=== PATIENT | male | born 1975 | race Caucasian/White ===

== ENCOUNTER 2021-07-10 21:58 | Emergency (ER) | payer OTHER ==
[2021-07-11 00:03] LABS: Absolute Lymphocytes (CBC) 1.8 K/uL (0.7-4.9); Basophils % 0.4 % (0-1.3); Hematocrit 52.4 % (39.6-49.0); Lymphocytes % 22.4 % (15.3-44.8); MPV 9.2 fL (7.6-11.3)
[2021-07-11 00:05] LABS: ALT/SGPT 33 U/L (12-78); AST/SGOT 23 U/L (15-37); Albumin 4.2 g/dL (3.4-5.0); Alkaline Phosphatase 68 U/L (45-117); BUN Blood Urea Nitrogen 17 mg/dL (7-18); Bicarbonate 31 mmol/L (21-32); Bilirubin Direct 0.1 mg/dL (0-0.2); Bilirubin Total 0.6 mg/dL (0.2-1.0); Glucose Level 100 mg/dL (74-106); Sodium Level 140 mmol/L (136-145)
[2021-07-11 00:06] LABS: Magnesium 2.2 mg/dL (1.8-2.4); NT PRO-BNP 50 pg/mL (<125); Troponin (Emerg Dept Use Only) < 0.02 ng/mL (0.0-0.045)
[2021-07-11 00:18] LABS: Protime INR 0.95
[2021-07-11 01:50] LABS: Barbiturates NEGATIVE (NEGATIVE); Benzodiazepines NEGATIVE (NEGATIVE); Cocaine NEGATIVE (NEGATIVE); METHAMPHETAM NEGATIVE (NEGATIVE); Methadone NEGATIVE (NEGATIVE); Opiates NEGATIVE (NEGATIVE); Phencyclidine NEGATIVE (NEGATIVE); THC Cannibis NEGATIVE (NEGATIVE)
--- NOTE | 2021-07-11 02:27 | EDPHYS ---
Physician Documentation [facility] Name: Case Jones Age: 45 yrs Sex: Male : 1975 Arrival Date: 07/10/2021 Time: 22:11 Bed 2 Private MD: ED Physician Migue Foster HPI: 07/11 01:24 This 45 yrs old Male presents to ER via Ambulatory with complaints of High pkl Blood Pressure. 01:24 Onset: The symptoms/episode began/occurred just prior to arrival. Associated signs and pkl symptoms: Pertinent positives: dizziness. Historical: - Allergies: 07/10 23:28 No Known Allergies; kg - Home Meds: 23:28 Adipex-P 37.5 mg oral tab 1 tab once daily [Active]; Flomax 0.4 mg Oral cap 1 cap once kg daily [Active]; Ambien 5 mg Oral tab 1 tab once daily [Active]; - PMHx: 23:28 BPH; kg - PSHx: 23:28 Intestinal SX when 6 months old; kg - Immunization history:: Adult Immunizations up to date, Client reports having NOT received the Covid vaccine. - Social history:: Smoking status: Patient denies any tobacco usage or history of. Patient uses alcohol, occasionally. ROS: 07/11 01:24 Eyes: Negative for injury, pain, redness, and discharge, ENT: Negative for injury, pkl pain, and discharge, Neck: Negative for injury, pain, and swelling, Cardiovascular: Negative for chest pain, palpitations, and edema. Respiratory: Positive for shortness of breath. Abdomen/GI: Negative for abdominal pain, nausea, vomiting, and diarrhea. Back: Negative for acute changes. : Negative for urinary symptoms. MS/extremity: Negative for acute changes. Skin: Negative for diaphoresis, rash. Neuro: Negative for altered mental status, loss of consciousness. Exam: 01:24 Head/Face: Normocephalic, atraumatic. Eyes: Pupils equal round and reactive to light, pkl extra-ocular motions intact. Lids and lashes normal. Conjunctiva and sclera are non-icteric and not injected. Cornea within normal limits. Periorbital areas with no swelling, redness, or edema. ENT: Nares patent. No nasal discharge, no septal abnormalities noted. Tympanic membranes are normal and external auditory canals are clear. Oropharynx with no redness, swelling, or masses, exudates, or evidence of obstruction, uvula midline. Mucous membranes moist. Neck: Trachea midline, no thyromegaly or masses palpated, and no cervical lymphadenopathy. Supple, full range of motion without nuchal rigidity, or vertebral point tenderness. No Meningismus. Chest/axilla: Normal chest wall appearance and motion. Nontender with no deformity. No lesions are appreciated. Cardiovascular: Regular rate and rhythm with a normal S1 and S2. No gallops, murmurs, or rubs. Normal PMI, no JVD. No pulse deficits. Respiratory: Lungs have equal breath sounds bilaterally, clear to auscultation and percussion. No rales, rhonchi or wheezes noted. No increased work of breathing, no retractions or nasal flaring. Abdomen/GI: Soft, non-tender, with normal bowel sounds. No distension or tympany. No guarding or rebound. No evidence of tenderness throughout. Back: No spinal tenderness. No costovertebral tenderness. Full range of motion. Skin: Warm, dry with normal turgor. Normal color with no rashes, no lesions, and no evidence of cellulitis. MS/ Extremity: Pulses equal, no cyanosis. Neurovascular intact. Full, normal range of motion. Neuro: Awake and alert, GCS 15, oriented to person, place, time, and situation. Cranial nerves II-XII grossly intact. Motor strength 5/5 in all extremities. Sensory grossly intact. Cerebellar exam normal. Normal gait. Vital Signs: 07/10 23:22 BP 182 / 121; Pulse 87; Resp 20; Temp 98.4; Pulse Ox 100% on R/A; Weight 113.4 kg (R); kg Height 6 ft. 2 in. (187.96 cm) (R); Pain 0/10; 07/11 01:52 BP 158 / 113; Pulse 78; Resp 20; Temp 98.1; Pulse Ox 98% ; Pain 0/10; ms4 07/10 23:22 Body Mass Index 32.10 (113.40 kg, 187.96 cm) kg MDM: 01:07 Patient medically screened. pkl 02:21 Data reviewed: vital signs, nurses notes, lab test result(s), EKG, radiologic studies, pkl CT scan, plain films. ED course: Patient feeling better. Discussed lab, EKG and imaging studies with patient. Advised to follow up with his PCP next week. Patient understood instruction. 07/10 23:38 Order name: Basic Metabolic Panel kg 07/10 23:38 Order name: CBC with Diff kg 07/10 23:38 Order name: LFT's; Complete Time: 01:10 kg 07/10 23:38 Order name: Magnesium; Complete Time: 01:10 kg 07/10 23:38 Order name: NT PRO-BNP; Complete Time: 01:10 kg 07/10 23:38 Order name: PT-INR; Complete Time: 01:10 kg 07/10 23:38 Order name: Troponin (emerg Dept Use Only); Complete Time: 01: kg 07/10 23:38 Order name: D-Dimer; Complete Time: 01:10 kg 07/10 23:38 Order name: CT Chest For PE Angio kg 07/10 23:39 Order name: Basic Metabolic Panel; Complete Time: 01:10 EDMS 07/10 23:39 Order name: CBC with Automated Diff; Complete Time: 01:10 EDMS 07/11 01:11 Order name: UDS; Complete Time: 02:14 pkl 07/11 01:14 Order name: XRAY CXR (1 view) pkl 07/11 02:46 Order name: EKG - Nurse/Tech; Complete Time: 02:46 ms4 Administered Medications: 02:11 Drug: NS 0.9% 1000 ml Route: IV; Rate: 125 ml/hr; Site: left antecubital; ms4 02:45 Drug: carvedilol 6.25 mg Route: PO; ms4 Disposition Summary: 07/11/21 02:27 Discharge Ordered Location: Home pkl Problem: new pkl Symptoms: have improved pkl Condition: Stable pkl Diagnosis - Acute dyspnea ( Resolved ) Hypertension pkl Followup: pkl - With: Private Physician - When: 1 week - Reason: Re-evaluation by your physician Discharge Instructions: - Discharge Summary Sheet pkl Forms: - Medication Reconciliation Form pkl - Thank You Letter pkl - Antibiotic Education pkl - Prescription Opioid Use pkl Prescriptions: - Carvedilol 6.25 mg Oral Tablet - take 1 tablet by ORAL route 2 times per day with food; 60 tablet; Refills: 0, pkl Product Selection Permitted Signatures: Dispatcher [employer] Migue Muñoz MD MD pkl Luann Prakash, RN RN kg Jessica Alvarez RN RN ms4
--- NOTE | 2021-07-11 02:27 | ER ---
Nurse's Notes [facility] Name: Case Jones Age: 45 yrs Sex: Male : 1975 Arrival Date: 07/10/2021 Time: 22:11 Bed 2 Private MD: Diagnosis: Acute dyspnea ( Resolved ) Hypertension Presentation: 07/10 23:22 Chief complaint: Patient states: Pt stated, " About 20:00 I was sitting down and kg feeling like it was hard to breath so I stood up and started panicking a little bit and then it went away. And I dont have anxiety. Then I started feeling a little dizzy and it started happening again so they called the ambulance and my BP was high." Pt stated he had COVID in April. Coronavirus screen: Client denies travel out of the [place] in the last 14 days. At this time, unable to obtain information related to travel outside the [place] At this time, the client does not indicate any symptoms associated with coronavirus-19. Ebola Screen: Patient negative for fever greater than or equal to 101.5 degrees Fahrenheit, and additional compatible Ebola Virus Disease symptoms Patient denies exposure to infectious person. Patient denies travel to an Ebola-affected area in the 21 days before illness onset. Initial Sepsis Screen: Does the patient meet any 2 criteria? No. Patient's initial sepsis screen is negative. Does the patient have a suspected source of infection? No. Patient's initial sepsis screen is negative. Risk Assessment: Do you want to hurt yourself or someone else? Patient reports no desire to harm self or others. Onset of symptoms was July 10, 2021 at 20:00. 23:22 Method Of Arrival: Ambulatory kg 23:22 Acuity: FRANCES 3 kg Triage Assessment: 23:28 General: Appears in no apparent distress. Behavior is calm, cooperative, appropriate kg for age, quiet. Pain: Denies pain. Historical: - Allergies: 23:28 No Known Allergies; kg - Home Meds: 23:28 Adipex-P 37.5 mg oral tab 1 tab once daily [Active]; Flomax 0.4 mg Oral cap 1 cap once kg daily [Active]; Ambien 5 mg Oral tab 1 tab once daily [Active]; - PMHx: 23:28 BPH; kg - PSHx: 23:28 Intestinal SX when 6 months old; kg - Immunization history:: Adult Immunizations up to date, Client reports having NOT received the Covid vaccine. - Social history:: Smoking status: Patient denies any tobacco usage or history of. Patient uses alcohol, occasionally. Screenin:31 Abuse screen: Denies threats or abuse. Denies injuries from another. Nutritional kg screening: No deficits noted. Tuberculosis screening: No symptoms or risk factors identified. Fall Risk None identified. Assessment: 07/11 02:46 Reassessment: Patient appears in no apparent distress at this time. No changes from ms4 previously documented assessment. Patient and/or family updated on plan of care and expected duration. Pain level reassessed. General: Appears in no apparent distress. Behavior is calm, cooperative. Vital Signs: 07/10 23:22 BP 182 / 121; Pulse 87; Resp 20; Temp 98.4; Pulse Ox 100% on R/A; Weight 113.4 kg (R); kg Height 6 ft. 2 in. (187.96 cm) (R); Pain 0/10; 07/11 01:52 BP 158 / 113; Pulse 78; Resp 20; Temp 98.1; Pulse Ox 98% ; Pain 0/10; ms4 07/10 23:22 Body Mass Index 32.10 (113.40 kg, 187.96 cm) kg ED Course: 07/10 22:11 Patient arrived in ED. mr 23:28 Triage completed. kg 23:28 Arm band placed on left wrist. kg 23:31 Patient has correct armband on for positive identification. kg 23:31 No provider procedures requiring assistance completed. Inserted saline lock: 20 gauge kg in right antecubital area, using aseptic technique. 07/11 00:34 CT Chest For PE Angio In Process Unspecified. EDMS 01:07 Migue Foster MD is Attending Physician. pkl 01:26 XRAY CXR (1 view) In Process Unspecified. EDMS 02:46 IV discontinued, intact, bleeding controlled. ms4 Administered Medications: 02:11 Drug: NS 0.9% 1000 ml Route: IV; Rate: 125 ml/hr; Site: left antecubital; ms4 02:45 Drug: carvedilol 6.25 mg Route: PO; ms4 Outcome: 02:27 Discharge ordered by . pkl 02:46 Discharged to home ambulatory. ms4 02:46 Condition: stable 02:46 Discharge instructions given to patient, Instructed on discharge instructions, follow up and referral plans. Demonstrated understanding of instructions, follow-up care. 02:47 Patient left the ED. ms4 Signatures: Dispatcher [employer] EDMigue Gordon MD MD pkl Rivera, Mary DwainLuann RN RN kg Jessica Alvarez RN RN ms4
[2021-07-11] MEDS ORDERED: carvediloL 6.25 MG TAB ONE (02:46)
[2021-07-11 02:54] VITALS: BP 158/113; TEMP 98.1; O2SAT 98
--- NOTE | 2021-07-11 09:00 | RAD REPORT ---
EXAM DESCRIPTION: RAD - Chest Single View - 07/11/2021 1:27 am CLINICAL HISTORY: DYSPNEA Chest pain. COMPARISON: CHEST PA AND LAT 2 VIEW dated 08/15/2010; Chest For Pe Angio dated 07/11/2021 FINDINGS: Portable technique limits examination quality. The lungs are grossly clear. The heart is normal in size. No displaced fractures. IMPRESSION: No acute intrathoracic process suspected.
--- NOTE | 2021-07-11 12:16 | RAD REPORT ---
EXAM DESCRIPTION: Chest For Pe Angio CLINICAL HISTORY: 45 years Male SOB COMPARISON: None TECHNIQUE: Images were obtained in axial, sagittal, and coronal planes. Intravenous contrast was adm inistered. 3-D MIP imaging was performed. This exam was performed according to our departmental dose-optimization program which includes use of Automated Exposure Control, adjustment of the mA and/or kV according to patient size and/or use o f iterative reconstruction technique. FINDINGS: No filling defects pulmonary arteries bilaterally. No aortic dissection or dilatation. No pericardial or pleural effusions bilaterally. No adenopathy. No lung parenchymal infiltrates or nodules seen. No pneumothorax. No acute osseous abnormality. No abnormality upper abdomen. Possible mucosal thickening distal esophagus. IMPRESSION: No evidence for pulmonary embolus. No aortic dissection or dilatation. No infiltrates se en. Possible mucosal thickening distal esophagus. Electronically signed by: Shazia Haro MD 07/11/2021 12:57 AM CDT Due to temporary technical issues with the PACS/Fluency reporting system, reports are being signed by the in house radiologist without review as a courtesy to ensure prompt reporting. The interpreting r adiologist is fully responsible for the content of the report.
== END 2021-07-11 02:47 | disposition home or self-care (01) ==
LOC: ER 21:58
DX: I10 Essential (primary) hypertension (principal)
CPT/HCPCS: 93005; 85025; 80048; 36415; 83735; 85610; 85379; 80076; 84484; 83880; 80307; 71275; 71045; 99283; Q9967

== ENCOUNTER 2024-03-14 06:30 | Day surgery (SDC) | payer BC, OTHER ==
[2024-03-07 10:40] LABS: Absolute Eosinophils 0.1 K/uL (0-0.5); Absolute Monocytes 0.3 K/uL (0.1-1.3); Basophils % 0.6 % (0-1.3); Eosinophils % 1.1 % (0-4.4); Hematocrit 52.2 % (39.6-49.0); Hemoglobin 17.4 g/dL (13.6-17.9); Lymphocytes % 26.9 % (15.3-44.8); MCH 31.2 pg (27.0-35.0); MCHC 33.3 g/dL (32.0-36.0); MCV 93.8 fL (80-100); MPV 8.6 fL (7.6-11.3); Monocytes % 4.5 % (3.3-12.3); Neutrophils % 66.9 % (41.7-73.7); Nucleated Red Blood Cells % 0.1 % (0-0); Platelets 173 thou/uL (152-406); RBC Red Blood Cell Count 5.56 M/uL (4.33-5.43); Red Cell Distribution Width 14.1 % (12.1-15.2)
[2024-03-07 10:48] LABS: PT Prothrombin Time 10.7 SECONDS (9.5-12.5); PTT, Activated Partial Thromb 32.9 SECONDS (24.3-36.9); Protime INR 0.97
--- NOTE | 2024-03-10 16:58 | EKG ---
Test Date: 2024-03-07 Test Time: 10:23:59 Registered Nurse Hh Case Manager: JAG MEASUREMENT RESULTS: Intervals: Rate: 98 [place]: QRSD: 82 QT: 372 QTc: 474 [place]: P: WI: QRS: 78 T: 54 INTERPRETIVE STATEMENTS: Atrial fibrillation Nonspecific ST abnormality, probably digitalis effect Abnormal ECG Compared to ECG 07/11/2021 02:27:34 ST (T wave) deviation now present Sinus rhythm no longer present Electronically Signed On 03-10-24 16:46:09 CDT by Tyrone Carlos
[2024-03-14] MEDS ORDERED: NA CHLORIDE 0.9% 500 ML ONE (07:08)
[2024-03-14] MEDS ORDERED: ATROPINE SULF 1 MG/10 ML SYR IV ONE (07:20)
[2024-03-14] MEDS ORDERED: METOPROLOL TARTRATE 5 MG/5 ML INJ IV ONE (07:21)
[2024-03-14] MEDS ORDERED: HYDRALAZINE HCL 20 MG/ML VIAL ONE (07:21)
[2024-03-14] MEDS ORDERED: propofoL 200 MG/20 ML VIAL IV ONE (08:57)
[2024-03-14 09:31] VITALS: TEMP 97.6
[2024-03-14 10:13] VITALS: BP 126/96; O2SAT 100
--- NOTE | 2024-03-14 11:35 | OP ---
Date of Procedure: 03/14/2024 Surgeon: Rui Castro Procedure Performed: MICHELLE cardioversion. Indication For Procedure: Atrial fibrillation. Complications: None. Estimated Blood Loss: zero. Sedation: Sedation was done by Anesthesia Team, 50 minutes. Description Of Procedure: After risks, benefits, and alternatives were explained to the patient, the patient agreed to proceed with the procedure and signed informed consent. The patient was brought b [facility] to the OR room. Time-out was performed. Sedation was administered. A MICHELLE probe was inserted. Images were obtained and then MICHELLE probe was removed. No complications. Then, 200 joules of synchron ized cardioversion was done. The patient went into sinus rhythm. The patient was moved back to [facility] in stable condition. Assessment And Plan: Will be to continue Bystolic and continue Xarelto 20 mg daily for 1 month and f ollow up in clinic. PRIYA Voice ID: [id number] Report ID: [id number]
--- NOTE | 2024-03-14 12:55 | EKG ---
Test Date: 2024-03-14 Test Time: 09:05:44 Elementary Education Tutor: JUAN MEASUREMENT RESULTS: Intervals: Rate: 67 MT: 184 QRSD: 84 QT: 436 QTc: 460 [place]: P: 20 MT: 184 QRS: 44 T: 64 INTERPRETIVE STATEMENTS: Normal sinus rhythm Normal ECG Compared to ECG 03/07/2024 10:23:59 Atrial fibrillation no longer present ST (T wave) deviation no longer present Electronically Signed On 03-14-24 12:54:27 CDT by Tyrone Carlos
--- NOTE | 2024-03-15 07:31 | TEE ---
TRANSESOPHAGEAL ECHOCARDIOGRAM REPORT CARDIOLOGY DEPARTMENT DATE OF STUDY: 03/14/2024 HEIGHT: 6'2" WEIGHT: 270 lbS DIAGNOSIS: ATRIAL FIBRILLATION/ CARDIOVERSION SCREEN WRITER COMMENTS: MICHELLE CARDIAC HISTORY: CATHERIZATION: SURGERY: PROSTHETIC VALVE: PACEMAKER: 2 DIMENSIONAL ASSESSMENT: RIGHT ATRIUM: NORMAL LEFT ATRIUM: NORMAL RIGHT VENTRICLE: NORMAL LEFT VENTRICLE: NORMAL TRICUSPID VALVE: NORMAL MITRAL VALVE: TRACE MITRAL REGURGITATION PULMONIC VALVE: NORAML AORTIC VALVE: NORMAL PERICARDIAL EFFUSION: NONE AORTIC ROOT: NORMAL EJECTION FRACTION: LEFT VENTRICULAR WALL MOTION: NORMAL DOPPLER/COLOR FLOW: NOT ACCESSED COMMENTS: 1. NORMAL LEFT ATRIAL APPENDAGE, NO CLOT TECHNOLOGIST: ADELAIDE FUNES
== END 2024-03-14 09:55 | disposition home or self-care (01) ==
LOC: CCL 06:30
PROVIDERS: ATTEND Internal Medicine
DX: I48.91 Unspecified atrial fibrillation (principal); I10 Essential (primary) hypertension; E66.9 Obesity, unspecified; Z79.899 Other long term (current) drug therapy
CPT/HCPCS: 93005 ×2; 93312; 85025; 80048; 36415; 85610; 85730; 92960; J2704; J7040; J0360; J0461